=== PATIENT | male | born 1995 | race Caucasian/White ===

== ENCOUNTER 2016-06-21 18:08 | Emergency (ER) | payer BC ==
[~2016-06-21] VITALS: Ht 170.2 cm; Wt 68.0 kg
[2016-06-21 18:37] VITALS: Ht 170.2 cm; Wt 68.0 kg
[2016-06-21] MEDS ORDERED: D-ME473S18 PO (20:27)
--- NOTE | 2016-06-21 20:41 | ERD ---
ER Documentation Chief Complaint Date/Time DATE: 06/21/16 TIME: 20:36 Chief Complaint anxiety HPI 21-year-old male with no past medical history presenting complaining of dry cough for 3 days. He states that many people at his work have a cough. He denies any phlegm, fever, chills, sore throat, runny nose, congestion, nausea, vomiting, diarrhea. He has no associated shortness of breath. He denies any chest pain. The patient is also requesting Vicodin for an old hand injury. He states that he has a lot of pain and he has received his pain medication before with significant relief of his pain. ROS All systems reviewed and are negative except as per history of present illness. Medications Home Meds Active Scripts Dextromethorphan Hb-Promethazine Hcl (Promethazine DM Syrup) 473 Ml Syrup, 5 ML PO Q6H Y for COUGH, #120 ML Prov:JANUARY LOVE MD 06/21/16 Allergies Allergies: Coded Allergies: guaifenesin (Verified Allergy, Unknown, 06/21/16) PMhx/Soc History of Surgery: Yes (Appendectomy) Anesthesia Reaction: No Hx Neurological Disorder: No Hx Respiratory Disorders: No Hx Cardiac Disorders: No Hx Psychiatric Problems: No Hx Miscellaneous Medical Probl: No Hx Alcohol Use: Yes (previous user) Hx Substance Use: No Hx Tobacco Use: No Smoking Status: Never smoker FmHx Family History: No diabetes Physical Exam Vitals Vital Signs Date Time Temp Pulse Resp B/P Pulse Ox O2 Delivery O2 Flow Rate FiO2 06/21/16 18:37 97.2 106 20 113/72 99 Physical Exam Const: Well-appearing, nontoxic, no distress, speaking in full sentences Head: Atraumatic Eyes: Normal Conjunctiva ENT: Normal External Ears, Nose and Mouth. Posterior oropharynx normal Neck: Full range of motion. No cervical lymphadenopathy. No meningismus. Resp: Clear to auscultation bilaterally Cardio: Regular rate and rhythm, no murmurs Abd: Soft, non tender, non distended. Normal bowel sounds Skin: No petechiae or rashes Back: No midline or flank tenderness Ext: No cyanosis, or edema. Well-healed scar on dorsum of left hand. Neur: Awake and alert Psych: Normal Mood and Affect Procedures/MDM Data and Course: I reviewed the nursing notes. Labs and imaging was felt not to be warranted. This is an otherwise healthy, well appearing patient presenting with uncomplicated URI symptoms, likely viral in etiology. Patient is non-toxic and well hydrated. I have low suspicion for pneumonia or significant bacterial disease. Patient will be treated with outpatient supportive care; no indications for antibiotics at this time. Discharge instructions have included return precautions and close follow up with PMD. I told him to follow-up with a hand surgeon if he has chronic pain due to his hand injury, however I cannot prescribe him Vicodin today. I offered him ibuprofen but he refused. I prescribed him promethazine with dextromethorphan for his cough, however the patient requested cough medications with codeine with a increased amount. I told him I could not prescribe him that medication. Patient was discharged in stable condition. Departure Diagnosis: Primary Impression: URI (upper respiratory infection) URI type: unspecified URI Qualified Code: J06.9 - Upper respiratory tract infection, unspecified type Condition: Stable Patient Instructions: Uri, Viral, No Abx (Adult) Referrals: [facility] YOU HAVE RECEIVED A MEDICAL SCREENING EXAM AND THE RESULTS INDICATE THAT YOU DO NOT HAVE A CONDITION THAT REQUIRES URGENT TREATMENT IN THE EMERGENCY DEPARTMENT. FURTHER EVALUATION AND TREATMENT OF YOUR CONDITION CAN WAIT UNTIL YOU ARE SEEN IN YOUR DOCTORS OFFICE WITHIN THE NEXT 1-2 DAYS. IT IS YOUR RESPONSIBILITY TO MAKE AN APPOINTMENT FOR FOLOW-UP CARE. IF YOU HAVE A PRIMARY DOCTOR --you should call your primary doctor and schedule an appointment IF YOU DO NOT HAVE A PRIMARY DOCTOR YOU CAN CALL OUR PHYSICIAN REFERRAL HOTLINE AT IF YOU CAN NOT AFFORD TO SEE A PHYSICIAN YOU CAN CHOSE FROM THE FOLLOWING [facility] [address] [facility]. [facility] [address] [facility] [facility] [address] [facility] [facility] [address] [facility]. [facility] [address] [facility] [facility]. [address] JANUARY HENLEY MD Jun 21, 2016 20:40
== END 2016-06-21 20:45 | disposition home or self-care (01) ==
LOC: FTE 18:08
DX: J06.9 Acute upper respiratory infection, unspecified (principal)
CPT/HCPCS: 99283